=== PATIENT | male | born 1960 | race Caucasian/White ===

== ENCOUNTER 2021-03-14 16:20 | Emergency (ER) | payer OTHER ==
[~2021-03-14] VITALS: Ht 175.3 cm; Wt 90.7 kg
[2021-03-14 16:32] VITALS: BP_SYST 162
[2021-03-14] MEDS ORDERED: IBUPROFEN 800 MG TABLET PO ONE (17:00)
[2021-03-14] MEDS ORDERED: HYDROcodone/ACETAMIN 5-325 MG TAB (NORCO/ VICODIN) PO ONE (17:00)
[2021-03-14 17:33] VITALS: BP_SYST 162
== END 2021-03-14 17:20 ==
LOC: SED 16:20
DX: M54.5 Low back pain (principal)
CPT/HCPCS: 99283